=== PATIENT | male | born 1980 | race African-American/Black ===

== ENCOUNTER 2020-10-22 10:11 | Emergency (ER) | payer SELFPAY ==
[2020-10-22] MEDS ORDERED: TESSALON PERLE100 MG PO (10:47)
[2020-10-22] MEDS ORDERED: PREDNISONE 50 M50 MG PO (10:47)
[2020-10-22] MEDS ORDERED: AZITHROMYCIN250 MG PO (10:47)
== END 2020-10-22 11:10 | disposition home or self-care (01) ==
LOC: ER1 10:11
DX: R05 Cough (principal); J44.9 Chronic obstructive pulmonary disease, unspecified; Z87.09 Personal history of other diseases of the respiratory system
CPT/HCPCS: 99283